=== PATIENT | female | born 1950 | race Caucasian/White ===

== ENCOUNTER 2019-02-27 13:28 | Inpatient (IN) | payer OTHER, MEDICAID ==
[~2019-02-27] VITALS: Ht 185.4 cm; Wt 126.6 kg
--- NOTE | 2019-02-27 13:28 | NUR ---
PATIENT BIB EMS TO BED 8.
--- NOTE | 2019-02-27 13:35 | NUR ---
DR. TATE AT BEDSIDE EVALUATING PATIENT.
[2019-02-27 13:36] VITALS: BP 177/86
--- NOTE | 2019-02-27 13:59 | NUR ---
LAB AT BEDSIDE
--- NOTE | 2019-02-27 14:06 | NUR ---
RAD AT BEDSIDE
--- NOTE | 2019-02-27 14:07 | NUR ---
PT BIBA FOR ALTERED MENTAL STATUS. PER [facility] PT BASELINE IS AAOX4. PT CURRENTLY AAOX0, GCS 9. LAST KNOWN NORMAL WAS LAST NIGHT. PT TRYING TO GET UP. PT UNABLE TO ANSWER QUESTIONS, MUMBLING, SPEACH INCOHERENT. PAIN AT 7/10 USING PAINAD SCALE. PT TACYCARDIC AT 102. SKIN IS INTACT. VSS. ER TO SEE PT. MEDHX:MANOHAR, CHRONIC PAIN
--- NOTE | 2019-02-27 14:12 | NUR ---
LOC ALTERED AND COMBATIVE SAMPLE WASHER UNABLE TO DRAW ABG ED MD AWARE
[2019-02-27 14:15] LABS: BASOPHILS % (AUTO) 0.3 % (0.0-2.0); EOSINOPHILS # (AUTO) 0.1 K/uL (0-0.4); HEMATOCRIT 37.6 % (36-48); HEMOGLOBIN 12.4 g/dL (12.0-16.0); LYMPHOCYTES # (AUTO) 1.1 K/uL (2.5-16.5); MEAN CORPUSCULAR HEMOGLOBIN 28 pg (27-31); MEAN CORPUSCULAR HGB CONC 33 g/dL (33-37); MEAN CORPUSCULAR VOLUME 85.5 fL (80-94); MONOCYTES # (AUTO) 0.8 K/uL (0.8-1.0); MONOCYTES % (AUTO) 11.3 % (1.7-9.3); NEUTROPHILS % (AUTO) 71.4 % (42.2-75.2); PLATELET COUNT (AUTO) 177 K/uL (140-450); RED CELL DISTRIBUTION WIDTH 13.6 % (11.6-13.7)
--- NOTE | 2019-02-27 14:15 | NUR ---
PER ED MD VENOUS DRAW OK IN LIEU OF ABG
--- NOTE | 2019-02-27 14:18 | NUR ---
VENOUS DRAW DONE BY PAGE
[2019-02-27 14:26] LABS: APPEARANCE,URINE CLEAR (CLEAR); BILIRUBIN,URINE NEGATIVE (NEGATIVE); BLOOD, URINE NEGATIVE (NEGATIVE); COLOR,URINE YELLOW (YELLOW); LEUKOCYTE ESTERASE ,URINE NEGATIVE (NEGATIVE); NITRITE, URINE NEGATIVE (NEGATIVE); UGLUCOSE NEGATIVE (NEGATIVE)
[2019-02-27 14:31] LABS: PROTHROMBIN TIME 9.9 secs (10.8-13.4)
[2019-02-27 14:32] LABS: ALBUMIN 3.1 g/dL (3.4-5.0); ANION GAP 13.9 (8-16); CARBON DIOXIDE 29.2 mmol/L (21-32); CREATININE 0.9 mg/dL (0.6-1.3); POTASSIUM 4.1 mmol/L (3.5-5.1); TOTAL BILIRUBIN 0.3 mg/dL (0.0-1.0)
[2019-02-27] MEDS ORDERED: metroNIDAZOLE 500 MG/NS PREMIX 100 ML IV ONE (14:40)
[2019-02-27] MEDS ORDERED: CEFEPIME 2,000 MG in DEXTROSE 5% 100 ML IV ONE (14:40)
[2019-02-27] MEDS ORDERED: VANCOMYCIN 1,000 MG in DEXTROSE 5% 250 ML IV ONE (14:40)
[2019-02-27] MEDS ORDERED: VANCOMYCIN 1,000 MG VIAL ONE (14:47)
[2019-02-27] MEDS ORDERED: PIPERACILLIN/TAZOBACTAM 3.375 GM VIAL IV ONE (14:47)
[2019-02-27] MEDS ORDERED: NACL 0.9% 1,000 ML IV ONE ×3 (15:00→16:20)
[2019-02-27] MEDS ORDERED: CEFEPIME 2,000 MG VIAL IV ONE (15:01)
--- NOTE | 2019-02-27 15:23 | NUR ---
PT WENT TO CT AT THIS TIME, PT IS NOT A CANDIDATE FOR CT WITH CONTRAST DUE TO SHELFISH ALLERGY, ER NOTIFIED.
--- NOTE | 2019-02-27 16:00 | NUR ---
CT DOWN, UNABLE TO OBTAIN CT AT THIS TIME, ER MADE AWARE
--- NOTE | 2019-02-27 16:29 | NUR ---
[facility] GAVE REPORT TO KIRBY ABEL ABOUT TRANSFER FOR CT. Addendum: 02/27/19 at 1634 by ROSEMARIE PAGE ORR STATED DR TRIPP IS UNWILLING TO ACCEPT PT UNLESS PT IS NO LONGER COMBATIVE AND ABLE TO PERFORM CT.
--- NOTE | 2019-02-27 16:55 | NUR ---
[facility]- ACLS AT BEDSIDE PATIENT TO TAKEN TO [facility] ER FOR CT SCAN.
--- NOTE | 2019-02-27 19:04 | NUR ---
PT RETURN TO BED 8 FROM [facility] TRANSPORT
--- NOTE | 2019-02-27 19:15 | NUR ---
REPORT RECV'D FROM JOSE DE JESUS ABEL
[2019-02-27] MEDS ORDERED: MORPHINE SULFATE 4 MG/ML SYR IVP ONE (19:45)
[2019-02-27] MEDS: NACL 0.9% 1,000 ML IV SCH (19:49)
[2019-02-27] MEDS ORDERED: DOCUSATE SODIUM 100 MG GELCAP PO PRN (19:50)
[2019-02-27] MEDS ORDERED: ONDANSETRON 4 MG/2 ML VIAL IM/IVP PRN (19:50)
[2019-02-27] MEDS ORDERED: FLUT1DSK2 IH (20:21)
[2019-02-27] MEDS ORDERED: GABA400C PO (20:21)
[2019-02-27] MEDS ORDERED: QUET100T PO (20:21)
[2019-02-27] MEDS ORDERED: METO25TA PO (20:21)
[2019-02-27] MEDS ORDERED: CARB1TAB35 PO (20:21)
[2019-02-27] MEDS ORDERED: TRAZ-343 PO (20:21)
[2019-02-27] MEDS ORDERED: LEVA0.6318 INH (20:21)
[2019-02-27] MEDS ORDERED: [UNRECOGNIZED DRUG - CODE] PO (20:21)
[2019-02-27] MEDS ORDERED: CLOP75TA55 PO (20:21)
[2019-02-27] MEDS ORDERED: CARBIDOPA (20:21)
[2019-02-27] MEDS ORDERED: HYDR-5043 PO (20:21)
[2019-02-27] MEDS ORDERED: PANT40EC PO (20:21)
[2019-02-27] MEDS ORDERED: TIOT18CA2 IH (20:21)
[2019-02-27] MEDS ORDERED: ATA25 PO (20:21)
[2019-02-27] MEDS ORDERED: DIVA500T1 PO (20:21)
[2019-02-27] MEDS ORDERED: FURO-572 PO (20:21)
[2019-02-27] MEDS ORDERED: NON-FORMULARY ITEM (Levalbuterol HCl* (Xopenex*) 0.63 MG) INH SCH (20:25)
[2019-02-27] MEDS ORDERED: HYDROCODONE PO SCH (20:25)
[2019-02-27] MEDS ORDERED: ACETAMINOPHEN PO SCH (20:25)
--- NOTE | 2019-02-27 20:31 | NUR ---
PT CLEANED, MADELYN CARE PROVIDED. NEW GOWN APPLIED. NEW DRY MALLY PADS. NEW SHEETS APPLIED TO BED. PT TOLERATED WELL. PT PLACED INTO POSITION OF COMFORT. WAITING FOR ADMISSION TO FLOOR.
--- NOTE | 2019-02-27 20:40 | NUR ---
Patient will be admitted to care of DR. SAMPSON. Admited to [facility]. Will go to room 111B. Belongings list completed. Report to STANLEY ABEL.
[2019-02-27 20:45] VITALS: BP 143/70
--- NOTE | 2019-02-27 20:45 | NUR ---
PT ARRIVED VIA GURNEY FROM ER, PT TRANSFERRED TO ROOM 111B. PT ESCORTED BY EMT AND ABBIE ABEL ER NURSE. REPORT GIVEN BY ABBIE ABEL ER NURSE, PT IN STABLE CONDITION. PT IS FROM [facility] WHERE SHE USES AN ELECTRIC W/C. PT IS AOX1, SHE HAS POOR HEARING AND VISION. PT SKIN INTACT, WITH IV SITE 20G ON RIGHT AC RUNNING FLAGYL ORDERED.V/S FOLLOWS T 97.4 P 84 R 18 B/P 143/70 02 95% ON ROOM AIR. PT PLACED ON FALLS PRECAUTIONS, SHE WAS ALSO TURNED, CHANGED AND REPOSITIONED FOR COMFORT. PT HOWEVER CAN TURN HERSELF.
[2019-02-27] MEDS: QUEtiapine FUMARATE 100 MG TAB PO SCH (21:00)
[2019-02-27] MEDS ORDERED: NON-FORMULARY ITEM (Fluticasone/Salmeterol* (Advair 250-50 Diskus*) 1 PUFF) IH SCH (21:00)
[2019-02-27 21:03] LABS: PHOSPHORUS 2.9 mg/dL (2.5-4.9); THYROID STIMULATING HORMONE 2.3 uIU/mL (0.34-3.74)
[2019-02-27 21:05] LABS: BARBITURATE, URINE NEG. ng/ml (NEG <=200); BENZODIAZEPINE, URINE NEG. ng/mL (NEG <=200); CANNABINOID, URINE NEG. ng/mL (NEG <=50); COCAINE, URINE NEG. ng/mL (NEG <=300); OPIATE, URINE NEG. ng/mL (NEG <=2000); PHENCYCLIDINE SCREEN,URINE NEG. ng/mL (NEG <=25)
--- NOTE | 2019-02-27 21:30 | NUR ---
PT GIVEN ROUTINE MEDS DEPAKOTE,SEROQUEL AND LOPRESSOR BY MOUTH. PT ABLE TO SWALLOW WHOLE PILLS AND DRINK THIN LIQUIDS WITH NO TROUBLE. N/S ORDER CHANGED TO RATE OF 60. IV SITE INTACT.LUNG SOUNDS CLEAR AND BOWEL SOUNDS HYPOACTIVE BUT PRESENT.
[2019-02-27] MEDS: ACETAMINOPHEN 325 MG TAB PO PRN (21:46)
[2019-02-27] MEDS: DIVALPROEX 500 MG TABER PO SCH (21:47)
[2019-02-27] MEDS: METOPROLOL 25 MG TAB PO SCH (21:59)
--- NOTE | 2019-02-27 22:00 | NUR ---
PT C/O OF MILD HEADACHE, PT GIVEN TYLENOL 650MG WILL MONITOR FOR PAIN RELIEF.
--- NOTE | 2019-02-27 23:30 | NUR ---
DR. JOHNSON ORDERED BUPAP, PT HAS HX OF SLEEP APNEA. RT AT BEDSIDE EVALUATING PT AND SETTING UP BIPAP MACHINE.
--- NOTE | 2019-02-28 00:30 | NUR ---
PT C/O OF BIPAP MACHINE KEEPS BEEPING, PT HAS NO S/S OF PAIN OR DISTRESS, RESPIRATORY CALLED TO EVALUATE MACHINE.
--- NOTE | 2019-02-28 01:00 | NUR ---
RT ATTEMPTED TO PLACE PATIENT ON BIPAP DURING THE NIGHTIME BUT PATIENT REFUSED TO WEAR IT. RT PLACED PATIENT BACK ON 3L NC. PATIENT STABLE AND NO RESP DISTRESS NOTICED AT THIS TIME.
--- NOTE | 2019-02-28 01:30 | NUR ---
RT EVALUATED MACHINE, PT REFUSES TO CONTINUE WITH BIPAP PT CONCERNED IT WILL KEEP BEEPING ON HER, PT REFUSES TO CONTINUE WITH BIPAP MACHINE. PT PLACE ON 3LITERS VIA N/C AND IS STATING AT 90%. DR. JOHNSON MADE AWARE.
[2019-02-28] MEDS ORDERED: TRAZ-343 PO (02:20)
[2019-02-28 04:00] VITALS: BP 124/48
--- NOTE | 2019-02-28 07:20 | NUR ---
CARE ENDORSED TO AYANA ABEL DAYSHIFT NURSE AT BEDSIDE FOR CONTINUITY OF CARE, PT IN STABLE CONDITION.
--- NOTE | 2019-02-28 07:25 | NUR ---
RECEIVED REPORT FROM MIXING PLACE SUPERVISOR NURSE. PT IN STABLE CONDITION. RESPIRATIONS EVEN AND UNLABORED. IV INTACT AND PATENT. O2 3L VIA NC PATENT AND INTACT. SAFETY MEASURES IN PLACE. BED IN LOW POSITION. BED ALARM ON. CALL LIGHT AT BEDSIDE. WILL CONTINUE TO MONITOR.
[2019-02-28 07:44] LABS: MAGNESIUM 1.9 mg/dL (1.8-2.4); PHOSPHORUS 3.4 mg/dL (2.5-4.9)
[2019-02-28 07:48] LABS: ANION GAP 10.4 (8-16); CARBON DIOXIDE 31.4 mmol/L (21-32); CREATININE 0.7 mg/dL (0.6-1.3); POTASSIUM 3.8 mmol/L (3.5-5.1)
[2019-02-28 08:00] VITALS: BP 171/94
[2019-02-28 08:07] LABS: BASOPHILS % (AUTO) 0.4 % (0.0-2.0); EOSINOPHILS # (AUTO) 0.1 K/uL (0-0.4); EOSINOPHILS % (AUTO) 1.7 % (0.0-4.0); HEMATOCRIT 33.7 % (36-48); HEMOGLOBIN 10.9 g/dL (12.0-16.0); LYMPHOCYTES # (AUTO) 1.6 K/uL (2.5-16.5); LYMPHOCYTES % (AUTO) 24.8 % (20.5-51.1); MEAN CORPUSCULAR HEMOGLOBIN 28 pg (27-31); MEAN CORPUSCULAR HGB CONC 32 g/dL (33-37); MONOCYTES # (AUTO) 0.9 K/uL (0.8-1.0); MONOCYTES % (AUTO) 13.3 % (1.7-9.3); NEUTROPHILS % (AUTO) 59.8 % (42.2-75.2); PLATELET COUNT (AUTO) 169 K/uL (140-450); RED BLOOD CELL COUNT(AUTO) 3.93 MIL/uL (4.20-5.40); RED CELL DISTRIBUTION WIDTH 13.7 % (11.6-13.7); WHITE BLOOD COUNT (AUTO) 6.6 K/uL (4.8-10.8)
[2019-02-28 08:23] LABS: CHOL/HDL RATIO 4.2 (1-4.5)
--- NOTE | 2019-02-28 08:38 | NUR ---
GAVE PT TWO WASH CLOTH TO PLACE ON EYES AND NECK. PT C/O MIGRAINE. BED IN LOW POSITION. BED ALARM ON. CALL LIGHT AT BEDSIDE. WILL CONTINUE TO MONITOR.
[2019-02-28] MEDS ORDERED: TIOTROPIUM BROMIDE 18 MCG IH SCH (09:00)
[2019-02-28] MEDS ORDERED: NON-FORMULARY ITEM (Clopidogrel Bisulfate (Clopidogrel) 75 MG) PO SCH (09:00)
[2019-02-28] MEDS ORDERED: SUMAtriptan 25 MG TAB PO SCH (09:45)
[2019-02-28] MEDS: GABAPENTIN 100 MG CAP PO SCH ×3 (09:58→17:17)
[2019-02-28] MEDS: LACTOBACILLUS RHAMNOSUS GG 1 EACH CAP PO SCH (09:59)
[2019-02-28] MEDS: QUEtiapine FUMARATE 100 MG TAB PO SCH ×2 (09:59→20:54)
[2019-02-28] MEDS: METOPROLOL 25 MG TAB PO SCH ×2 (09:59→20:54)
[2019-02-28] MEDS: LEVOTHYROXINE 0.05 MG TAB PO SCH (10:00)
[2019-02-28] MEDS: CARBIDOPA/LEVODOPA 10/100 MG 1 TAB PO SCH ×3 (10:01→17:17)
[2019-02-28] MEDS: DIVALPROEX 500 MG TABER PO SCH ×2 (10:01→20:54)
[2019-02-28] MEDS: FAMOTIDINE 20 MG TAB PO SCH (10:01)
[2019-02-28] MEDS: CLOPIDOGREL 75 MG TAB PO SCH (10:01)
--- NOTE | 2019-02-28 11:56 | NUR ---
ASSISTED WITH CLEANING AND CHANGING LINEN. PT TOLERATED WELL. BED IN LOW POSITION. BED ALARM ON. CALL LIGHT AT BEDSIDE. WILL CONTINUE TO MONITOR.
[2019-02-28 12:00] VITALS: BP 146/72
[2019-02-28] MEDS ORDERED: SUMAtriptan 50 MG TAB PO SCH (13:00)
[2019-02-28] MEDS: NACL 0.9% 1,000 ML IV SCH (13:30)
--- NOTE | 2019-02-28 13:38 | NUR ---
GAVE ORDERED MEDICATIONS AT THIS TIME. PT TOLERATED WELL. BED IN LOW POSITION. BED ALARM ON. CALL LIGHT AT BEDSIDE. WILL CONTINUE TO MONITOR.
[2019-02-28 16:00] VITALS: BP 149/84
[2019-02-28] MEDS: HYDROcodone/APAP 10/325 MG 1 TAB TAB PO PRN (18:03)
--- NOTE | 2019-02-28 19:32 | NUR ---
REPORT GIVEN TO CHARGING OPERATOR DENIS RN FOR CONTINUITY OF CARE. PT IS STABLE AT THIS TIME.
--- NOTE | 2019-02-28 19:35 | NUR ---
RECEIVED FROM AM RN IN BED SITTING UP. TALKING TO SOMEONE ON THE PHONE. ABLE TO VERBALIZE NEEDS WELL. NO SOB. TELEMETRY MONITORING. ENCOURAGED TO CALL FOR ANY HELP SHE MAY NEED. CARE PLANS FOR THE NIGHT DISCUSSED WITH HER.
[2019-02-28 20:43] VITALS: BP 160/81
[2019-02-28] MEDS: traZODone 50 MG TAB PO SCH (20:54)
--- NOTE | 2019-02-28 22:30 | NUR ---
PT. STILL AWAKE AND WATCHING TV. REQUESTED TO HAVE BIPAP ON. CALLED RESPIRATORY THERAPIST AND MADE THEM AWARE OF PT. REQUEST.
--- NOTE | 2019-02-28 23:23 | NUR ---
Patient placed on CPAP [phone] and is stable and alert. No resp distress is noticed and patient is alert and oriented. Leidy Vasquez notified of the switch from BIPAP to CPAP and approved. RN notified and patient seems to tolerate the CPAP better and is more comfortable. RT will continue to monitor closely during the night.
[2019-03-01 01:17] VITALS: BP 113/63
--- NOTE | 2019-03-01 02:10 | NUR ---
PT. SLEEPING WELL WITH BIPAP ON. NO RESTLESSNESS NOTED.
--- NOTE | 2019-03-01 03:00 | NUR ---
Patient took CPAP off and did not want to wear it any longer. Patient stable and asleep. Spo2 96 heart rate 88. Rt put patient back on nasal canula 3L.
[2019-03-01 04:02] VITALS: BP 114/62
--- NOTE | 2019-03-01 04:42 | NUR ---
SLEEPING . NO COMPLAINTS DONE.
[2019-03-01] MEDS: NACL 0.9% 1,000 ML IV SCH ×2 (05:09→22:41)
--- NOTE | 2019-03-01 06:23 | NUR ---
PT. AWAKE AT THIS TIME. BLOOD SPECIMEN TAKEN BY MACHINE OPERATOR FARMWORKER. NO COMPLAINTS DONE. A/O X 4. WILL ENDORSE TO THE NEXT RN FOR CONTINUITY OF CARE. SLEPT WELL.
[2019-03-01 06:47] LABS: BASOPHILS % (AUTO) 0.5 % (0.0-2.0); EOSINOPHILS # (AUTO) 0.1 K/uL (0-0.4); EOSINOPHILS % (AUTO) 1.8 % (0.0-4.0); HEMATOCRIT 32.1 % (36-48); HEMOGLOBIN 10.5 g/dL (12.0-16.0); LYMPHOCYTES # (AUTO) 1.7 K/uL (2.5-16.5); LYMPHOCYTES % (AUTO) 26.7 % (20.5-51.1); MEAN CORPUSCULAR HEMOGLOBIN 28 pg (27-31); MEAN CORPUSCULAR HGB CONC 33 g/dL (33-37); MEAN CORPUSCULAR VOLUME 85.7 fL (80-94); MONOCYTES # (AUTO) 0.9 K/uL (0.8-1.0); MONOCYTES % (AUTO) 14.3 % (1.7-9.3); NEUTROPHILS # (AUTO) 3.6 K/uL (1.8-7.7); NEUTROPHILS % (AUTO) 56.7 % (42.2-75.2); PLATELET COUNT (AUTO) 169 K/uL (140-450); RED BLOOD CELL COUNT(AUTO) 3.75 MIL/uL (4.20-5.40); RED CELL DISTRIBUTION WIDTH 13.7 % (11.6-13.7); WHITE BLOOD COUNT (AUTO) 6.4 K/uL (4.8-10.8)
--- NOTE | 2019-03-01 07:40 | NUR ---
RECEIVED REPORT FROM NIGHT NURSE DENIS PT ASLEEP EASILY AROUCABLE TO A/OX 4, ABLE TO COMMUNICATE NEEDS. PT DENIES PAIN DISCOMFORT, NO S/S OF ACUTE DISTRESS NOTED. CALL LIGHT AND PERSONAL ITEMS WITHIN REACH, SAFETY PRECAUTIONS IN PLACE, WILL CONTINUE TO MONITOR.
[2019-03-01 07:43] LABS: ANION GAP 12.2 (8-16); CARBON DIOXIDE 29.4 mmol/L (21-32); CREATININE 0.8 mg/dL (0.6-1.3); POTASSIUM 3.6 mmol/L (3.5-5.1)
[2019-03-01 07:51] LABS: MAGNESIUM 2.1 mg/dL (1.8-2.4)
[2019-03-01 08:00] VITALS: BP 141/83
[2019-03-01] MEDS ORDERED: DOCUSATE SODIUM 100 MG GELCAP PO PRN (08:04)
--- NOTE | 2019-03-01 08:23 | NUR ---
PATIENT HAS BEEN SCREENED AND CATEGORIZED MODERATE NUTRITION RISK. PATIENT WILL BE SEEN WITHIN 3-5 DAYS OF ADMISSION. 03/02/[address]
[2019-03-01] MEDS ORDERED: LIDOCAINE OINTMENT 5% 35 GM TUBE TP SCH (09:00)
[2019-03-01] MEDS: LACTOBACILLUS RHAMNOSUS GG 1 EACH CAP PO SCH (09:02)
[2019-03-01] MEDS: DIVALPROEX 500 MG TABEC PO SCH ×2 (09:03→22:40)
[2019-03-01] MEDS: METOPROLOL 25 MG TAB PO SCH ×2 (09:05→22:41)
[2019-03-01] MEDS: CLOPIDOGREL 75 MG TAB PO SCH (09:06)
[2019-03-01] MEDS: GABAPENTIN 100 MG CAP PO SCH ×3 (09:06→17:52)
[2019-03-01] MEDS: FAMOTIDINE 20 MG TAB PO SCH (09:06)
[2019-03-01] MEDS: QUEtiapine FUMARATE 100 MG TAB PO SCH (09:07)
[2019-03-01] MEDS: CARBIDOPA/LEVODOPA 10/100 MG 1 TAB PO SCH ×3 (09:07→17:52)
[2019-03-01] MEDS: LEVOTHYROXINE 0.05 MG TAB PO SCH (09:08)
[2019-03-01] MEDS ORDERED: MENTHOL/METHYL 10%-15% 114 GM TUBE TP PRN (09:25)
--- NOTE | 2019-03-01 09:30 | NUR ---
PT A/O ABLE TO COMMUNICATE NEEDS. NO S/S OF ACUTE DISTRESS NOTED. CALL LIGHT AND PERSONAL ITEMS WITHIN REACH, SAFETY PRECAUTIONS IN PLACE, WILL CONTINUE TO MONITOR.
--- NOTE | 2019-03-01 10:50 | NUR ---
PT SECOND MUSHY STOOL ON SHIFT, CHARGE AND PHYSICIAN NOTIFIED, SAMPLE COLLECTED AND DELIVERED TO LAB FOR CDIFF TESTING.
--- NOTE | 2019-03-01 11:15 | NUR ---
NOTIFIED PT PER PHARMACY SPIRIVA AND ADVAIR NOT AVAILABLE, REQUESTED FAMILY OF FRIEND BRING MED FROM HOME.
--- NOTE | 2019-03-01 11:45 | NUR ---
PT TO A/OX 4, ABLE TO COMMUNICATE NEEDS. ASSISTED PT OOB TO CHAIR, NO S/S OF ACUTE DISTRESS NOTED. CALL LIGHT AND PERSONAL ITEMS WITHIN REACH, SAFETY PRECAUTIONS IN PLACE, WILL CONTINUE TO MONITOR.
[2019-03-01] MEDS: CHLORHEXADINE GLUC 2% CLOTH TP SCH (12:20)
[2019-03-01 12:30] VITALS: BP 120/50
[2019-03-01] MEDS: HYDROcodone/APAP 10/325 MG 1 TAB TAB PO PRN (12:30)
--- NOTE | 2019-03-01 12:30 | NUR ---
PER ORDER CONTACT PRECAUTIONS PLACED, PT PROVIDED EDUCATION, VERBALIZES UNDERSTANDING. NO S/S OF ACUTE DISTRESS NOTED. CALL LIGHT AND PERSONAL ITEMS WITHIN REACH, SAFETY PRECAUTIONS IN PLACE, WILL CONTINUE TO MONITOR.
[2019-03-01] MEDS: MUPIROCIN CA NASAL 2% 1GM TUBE NS SCH (13:22)
[2019-03-01] MEDS: ALBUTEROL SULFATE/IPRATROPIU 3 ML SOL IH PRN ×2 (13:56→21:14)
--- NOTE | 2019-03-01 14:00 | NUR ---
PT REMAIN OOB TO CHAIR, COMFORTABLE PLAYING GAMES ON CELL PHONE. NO S/S OF ACUTE DISTRESS NOTED. CALL LIGHT AND PERSONAL ITEMS WITHIN REACH, SAFETY PRECAUTIONS IN PLACE, WILL CONTINUE TO MONITOR.
[2019-03-01] MEDS ORDERED: hydrOXYzine HCL 25 MG TAB PO PRN (15:25)
[2019-03-01 16:00] VITALS: BP_SYST 107; BP_SYST 122; BP_SYST 132; BP_DIAS 51; BP_DIAS 63; BP_DIAS 68
--- NOTE | 2019-03-01 16:30 | NUR ---
PT AWAKE A/O ABLE TO COMMUNICATE NEEDS, ORTHOSTATIC VS COMPELTED, TOLERATED WELL, NO S/S OF ACUTE DISTRESS NOTED AT THIS TIME, CALL LIGHT AND PERSONAL ITEMS WITHIN REACH, WILL CONTINUE TO MONITOR.
--- NOTE | 2019-03-01 18:00 | NUR ---
PT AWAKE A/O ABLE TO COMMUNICATE NEEDS, DR SANTA NOTIFIED PT WITHOUT DVT PROPHYLAXIS, PER MD HE WILL WRITE AN ORDER FOR DVT PROPHYLAXIS. PT RESTING COMFORTABLY IN BED, NO S/S OF ACUTE DISTRESS NOTED AT THIS TIME, CALL LIGHT AND PERSONAL ITEMS WITHIN REACH, WILL CONTINUE TO MONITOR.
--- NOTE | 2019-03-01 19:08 | NUR ---
PT AWAKE A/O ABLE TO COMMUNICATE NEEDS, NO S/S OF ACUTE DISTRESS NOTED AT THIS TIME, CALL LIGHT AND PERSONAL ITEMS WITHIN REACH, REPORT ENDORSED TO ONCOMING NURSE.
--- NOTE | 2019-03-01 19:10 | NUR ---
RECEIVED REPORT FROM [facility] DAYSHIFT NURSE AT BEDSIDE FOR CONTINUITY OF CARE, PT IN STABLE CONDITION.
[2019-03-01 20:00] VITALS: BP 142/69
--- NOTE | 2019-03-01 20:00 | NUR ---
PT IN BED HOB UP 45%. V/S FOLLOWS T 97.3 P 110 R 20 B/P 147/69 02 97% WITH 2LITERS VIA N/C. ALL FALLS AND CONTACT PRECAUTIONS IN PLACE. PT HAS NO C/O VOICED AT THIS TIME.
--- NOTE | 2019-03-01 21:14 | NUR ---
AWAKE AND ALERT VERBALLY RESPONSIVE PATIENT C/O SOB PRN HHN THERAPY AND RES[IRATORY DRUG GIVEN AT THIS TIME BIPAP VISION (#[id number]) AT BEDSIDE
--- NOTE | 2019-03-01 21:40 | NUR ---
DR. ARAYA AT BEDSIDE FOR PSYCH CONSULT.
--- NOTE | 2019-03-01 22:00 | NUR ---
PT RECEIVED ALL DUE MEDS AT THIS TIME. NO PRN GIVEN AT THIS TIME. PT HAS NO C/O OF PAIN AT THIS TIME. ALL FALLS AND CONTACT PRECAUTIONS IN PLACE. PT ABLE TO REPOSITION SELF IN BED. CALL BONILLA IN REACH.
[2019-03-01] MEDS: traZODone 50 MG TAB PO SCH (22:40)
[2019-03-02] VITALS: BP 98/66
--- NOTE | 2019-03-02 00:30 | NUR ---
PT IN BED WITH BIBPAP ON NO S/S OF PAIN OR DISTRESS NOTED, ALL FALLS AND CONTACT PRECAUTIONS IN PLACE IV FLUIDS N/S RUNNING ORDERED. FLUIDS REPLACED V/S FOLLOWS T 97.6 P 86 R 18 B/P 98/66 02 96% WITH BIPAP ON . PT HAS NO C/O VOICED AT THIS TIME.
--- NOTE | 2019-03-02 05:37 | NUR ---
PATIENT OFF CPAP AT THIS TIME BY Jodi GONG RCP PLACED ON SUPPLEMENTAL OXYGEN VIA NC
--- NOTE | 2019-03-02 06:15 | NUR ---
SYNTHROID GIVEN ORDERED.
[2019-03-02] MEDS: LEVOTHYROXINE 0.025 MG TAB PO SCH (06:48)
--- NOTE | 2019-03-02 07:25 | NUR ---
REPORT GIVEN TO LASHA RN AT BEDSIDE FOR CONTINUITY OF CARE,PT IN STABLE CONDITION.
--- NOTE | 2019-03-02 07:26 | NUR ---
HAND OFF REPORT RECEIVED AT PT BEDSIDE FROM SEMICONDUCTOR WAFERS TESTER NURSE. PT IN BED ASLEEP. BED LOCK AND IN LOWEST POSITION. 2L NASAL CANULA IN PLACE. PT APPEARS IN NO APPARENT DISTRESS. WILL CONTINUE TO MONITOR.
--- NOTE | 2019-03-02 08:00 | NUR ---
LAB INFORMED ME THAT THEY WENT TO TAKE HER BLOOD AND THE PATIENT REFUSED. NO BLOOD DRAW WAS RECEIVED THIS MORNING DUE TO PT REFUSAL.
[2019-03-02] MEDS ORDERED: ATA25 PO (08:58)
[2019-03-02] MEDS ORDERED: FAMO20TA13 PO (08:59)
[2019-03-02] MEDS ORDERED: QUET100T44 PO (08:59)
[2019-03-02] MEDS ORDERED: DOCU-299 PO (08:59)
[2019-03-02] MEDS ORDERED: CHLO118S2 TP (08:59)
[2019-03-02] MEDS ORDERED: BACTNA NS (08:59)
[2019-03-02] MEDS ORDERED: [UNRECOGNIZED DRUG - CODE] IH (09:20)
[2019-03-02] MEDS ORDERED: PUL.5N NEB (09:20)
[2019-03-02] MEDS: LACTOBACILLUS RHAMNOSUS GG 1 EACH CAP PO SCH (09:58)
[2019-03-02] MEDS: GABAPENTIN 100 MG CAP PO SCH ×3 (09:59→17:31)
[2019-03-02] MEDS: FAMOTIDINE 20 MG TAB PO SCH (09:59)
[2019-03-02] MEDS: QUEtiapine FUMARATE 100 MG TAB PO SCH ×2 (09:59→20:58)
[2019-03-02] MEDS: CARBIDOPA/LEVODOPA 10/100 MG 1 TAB PO SCH ×3 (10:00→17:31)
[2019-03-02] MEDS: METOPROLOL 25 MG TAB PO SCH ×2 (10:00→20:58)
[2019-03-02] MEDS: CLOPIDOGREL 75 MG TAB PO SCH (10:00)
[2019-03-02] MEDS: DIVALPROEX 500 MG TABEC PO SCH ×2 (10:01→20:59)
[2019-03-02] MEDS: HYDROcodone/APAP 10/325 MG 1 TAB TAB PO PRN ×2 (10:29→21:09)
--- NOTE | 2019-03-02 10:44 | NUR ---
CALLED [facility] ABOUT THE NEBULIZER. SPOKE WITH WALDEMAR, . SHE SAID TO FAX THE ORDER TO THEM AT [phone], WHICH I DID.
--- NOTE | 2019-03-02 10:54 | NUR ---
PT COMPLAINED OF PAIN AND ASKED FOR PAIN MEDICATION. PT ALSO HAD A BOWEL MOVEMENT AND REQUESTED TO BE CLEANED. CLEANED PT AND PROVIDED WITH NEW CHUCKS AND LINENS, AND REPOSITIONED PT. NOTED SOME REDDNESS ON THE SACRAL AREA WILL CONTINUE TO MONITOR. BED IN LOWEST AND LOCKED POSITION. CALL LIGHT WITHIN REACH.
--- NOTE | 2019-03-02 11:55 | NUR ---
SPOKE WITH WALDEMAR FROM [employer], [phone] ASKING ABOUT THE NEBULIZER. SHE SAID TO REFAX TO HER AT [phone], WHICH I DID. I CALLED KATHRYN MARTIN AND WAS TOLD THAT [employer] ARRANGES TRANSPORT, SINCE THIS PATIENT DOES NOT FIT IN THEIR VAN. WILL CALL [employer].
--- NOTE | 2019-03-02 12:05 | NUR ---
FREQUENT ROUNDING ON PATIENT. PT IN BED RESTING QUIETLY PLAYING GAMES ON HER PHONE. PT IS STABLE AND APPEARS IN NO APPARENT DISTRESS. WILL CONTINUE TO MONITOR.
[2019-03-02] MEDS: CHLORHEXADINE GLUC 2% CLOTH TP SCH (13:06)
[2019-03-02] MEDS: MUPIROCIN CA NASAL 2% 1GM TUBE NS SCH (13:06)
--- NOTE | 2019-03-02 13:52 | NUR ---
I SPOKE WITH WALDEMAR FROM [employer] [phone]. SHE SAID SHE RECEIVED THE ORDER FOR NEBULIZER AND MEDICATION FOR NEBULIZER WHICH SHE GAVE TO THEIR PHYSICIAN. SHE SAID THEY WILL ARRANGE DELIVERY OF NEBULIZER AND MEDICATION TO [facility]. SHE SAID FOR TRANSPORT, USE [employer]. AUTH IS [id number].
--- NOTE | 2019-03-02 14:27 | NUR ---
FREQUENT ROUNDING ON PT. PT IN BED PLAYING GAMES ON HER PHONE. PT TURNED AND REPOSITIONED. PT IS STABLE AND APPEARS IN NO APPARENT DISTRESS. WILL CONTINUE TO MONITOR.
[2019-03-02] MEDS: NACL 0.9% 1,000 ML IV SCH (14:29)
--- NOTE | 2019-03-02 15:30 | NUR ---
PT REQUESTED LINEN CHANGE DUE TO URINATION. CLEANED AND CHANGED PT LINENS AND CHUCKS. ORDERED TO TITRATE DOWN THE NASAL CANULA. PT IS STABLE WITH NO NASAL CANULA ON AT THE MOMENT. PT IS REPOSITIONED AND RESTING COMFORTABLY. PT REQUESTED FOR SOME CHOCOLATE PUDDING AND DIET COKE. GAVE IT TO PT. ALL SAFETY MEASURES ARE IN PLACE AND WILL CONTINUE TO MONITOR.
--- NOTE | 2019-03-02 15:40 | NUR ---
0897 PER CHARGE NURSE ZANDRA ANTONY SAID THEY ARE NOT CONTRACTED WITH [employer] FOR BARIATRIC GURNEY WHICH PATIENT NEEDS. TRIED CALLING [facility] VIEIRA NUMEROUS TIMES AND VM IS FULL. CALLED [facility] AT [phone] AND SPOKE WITH BANG AND INFORMED HER THAT A TRANSPORT COMPANY WHO IS CONTRACTED AND CAN PROVIDE BARIATRIC GURNEY IS REQUIRED AND INFORMED HER THAT WILL NOT TRANSPORT THE PATIENT WHO IS TO BE DISCHARGED TODAY. BANG STATED WILL CHECK WITH WALDE[facility] AND I INFORMED HER I HAD ATTEMPTED TO CALL HER BUT THE VM BOX IS FULL. [phone] CALLED [facility] [employer] HAD NOT HEARD ABOUT THE TRANSPORT. SHE STATED THAT SHE HAD NOT BEEN ABLE TO FOLLOW UP AND I PROVIDED HER WITH THE DIRECT LINE TO THE MST UNIT AND REQUESTED THAT SHE CALL WITH [facility].
--- NOTE | 2019-03-02 18:00 | NUR ---
IV SITE WAS BLOODY, WITH BLOOD IN THE LINE AND THE IV CATH TIP WAS FALLING OUT. PT COMPLAINED OF PAIN. I REMOVED THE IV. IV CATH TIP WAS IN PLACE. CLEANSED THE DRIED BLOOD AROUND THE SITE.
[2019-03-02 18:24] VITALS: BP 146/87
--- NOTE | 2019-03-02 18:44 | NUR ---
FREQUENT ROUNDING PT IS RESTING QUIETLY IN BED. PT IS TOLERATING NO NASAL CANULA. REPOSITIONED PT. PT IS STABLE AND APPEARS IN NO APPARENT DISTRESS. ALL SAFETY MEASURES ARE IN PLACE.
--- NOTE | 2019-03-02 19:15 | NUR ---
ENDORSED BURIAL VAULT MAKER NURSE AT PT BEDSIDE. PT IS AWAKE AND SITTING UP IN BED. PT IS STABLE AND APPEARS IN NO APPARENT DISTRESS, ALL SAFETY MEASURES ARE IN PLACE.
--- NOTE | 2019-03-02 19:16 | NUR ---
RECEIVED BEDSIDE REPORT FROM LASHA. PT IS ON NC 2L. RESPIRATIONS ARE EQUAL AND UNLABORED. PT AAO X2-3. PT HAS NO IV ACCESS NURSE D/C IV. WILL ATTEMPT TO START NEW ONE PT ON IVF NO IV ANTIBIOTIC. PLAN OF PT TO D/C TOMORROW. SKIN INTACT HAS REDNESS ON SACRAL AREA. PT ABLE TO TURN IN BED BUT IS INCONTINENT TO URINE AND BM. PT ON CONTACT ISOLATION FOR MRSA OF NARES. SAFETY MEASURES ARE IN PLACE. BED ALARM ON AND LOWEST POSITION PLAN OF CARE DISCUSSED WITH PT. CALL LIGHT WITHIN REACH.
--- NOTE | 2019-03-02 20:59 | NUR ---
DUE MEDICATION GIVEN PT TOLERATED WELL. PT SITTING UP EATING A SANDWICH. ALL NEEDS MET AT THIS TIME. CALL LIGHT WITHIN REACH.
[2019-03-02] MEDS: traZODone 50 MG TAB PO SCH (21:00)
--- NOTE | 2019-03-02 21:50 | NUR ---
PT GOT OUT OF BED WITHOUT CALLING TO USE THE RESTROOM. BED ALARM WAS ON BUT DIFFICULT TO HEAR D/T CONSTRUCTION ON THE ROOM NEXT DOOR. ASSISTED PT TO RESTROOM. RE EDUCATED PT TO CALL FOR ASSISTANCE SHE NEEDS TO USE BEDPAN AND CANNOT GET OUT OF BED WITHOUT ASSISTANCE D/T GEN WEAKNESS. PT VERBALIZED UNDERSTANDING. ASSISTED PT TO BED. CALL LIGHT WITHIN REACH. BED ON LOWEST POSITION AND BED ALARM ON.
--- NOTE | 2019-03-02 23:00 | NUR ---
PT REFUSED NEW IV ACCESS. STATES SHE IS GOING HOME AND DOES NOT WANT TO BE POKED. EXPLAINED HOSPITAL PROTOCOL PT VERBALIZED UNDERSTANDING. BUT STILL REFUSED IV. WILL CONTINUE TO MONITOR.
[2019-03-02 23:58] VITALS: BP 144/75
--- NOTE | 2019-03-03 | NUR ---
VITAL SIGNS ARE STABLE. ALL NEEDS MET AT THIS TIME. CALL LIGHT WITHIN REACH. WILL CONTINUE TO MONITOR.
[2019-03-03] MEDS: ACETAMINOPHEN 325 MG TAB PO PRN (01:20)
--- NOTE | 2019-03-03 02:00 | NUR ---
PT IS SLEEPING COMFORTABLY IN BED. RESPIRATIONS ARE EQUAL AND UNLABORED. CALL LIGHT IS WITHIN REACH. SAFETY MEASURES ARE IN PLACE.
[2019-03-03] MEDS: NACL 0.9% 1,000 ML IV SCH (02:13)
[2019-03-03] MEDS: LEVOTHYROXINE 0.025 MG TAB PO SCH (06:35)
--- NOTE | 2019-03-03 07:55 | NUR ---
GAVE BEDSIDE REPORT TO DAY SHIFT RN. PT ENDORSED IN STABLE CONDITION.
[2019-03-03 08:00] VITALS: BP 159/78
--- NOTE | 2019-03-03 08:00 | NUR ---
RECEIVED BEDSIDE REPORT FROM DEPARTMENT DIRECTOR RN FOR CONTINUITY OF CARE. PT IN STABLE CONDITION. NO C/O PAIN AND DISCOMFORT. NO S/S DISTRESS. RESPIRATIONS EVEN AND UNLABORED ON RA. SKIN INTACT- WITH SACRAL REDNESS. ON BEDREST. NO IV ACCESS- PT HAS REFUSED AND IS AWARE. ALL SAFETY PRECAUTIONS IN PLACE, WILL CONTINUE TO MONITOR.
[2019-03-03] MEDS: QUEtiapine FUMARATE 100 MG TAB PO SCH (08:49)
[2019-03-03] MEDS: CARBIDOPA/LEVODOPA 10/100 MG 1 TAB PO SCH (08:49)
[2019-03-03] MEDS: DIVALPROEX 500 MG TABEC PO SCH (08:49)
[2019-03-03] MEDS: LACTOBACILLUS RHAMNOSUS GG 1 EACH CAP PO SCH (08:49)
[2019-03-03] MEDS: GABAPENTIN 100 MG CAP PO SCH (08:49)
[2019-03-03] MEDS: METOPROLOL 25 MG TAB PO SCH (08:50)
[2019-03-03] MEDS: FAMOTIDINE 20 MG TAB PO SCH (08:51)
[2019-03-03] MEDS: CLOPIDOGREL 75 MG TAB PO SCH (08:52)
[2019-03-03] MEDS: HYDROcodone/APAP 10/325 MG 1 TAB TAB PO PRN (08:52)
--- NOTE | 2019-03-03 09:04 | NUR ---
[facility] AUTH# [id number]. Pt will be picked up at 1030 from room 111 B and transported to [address] [place] [address]. Phone numbre . Informed Latonya ZAMBRANO for the cherry picker operator time and pt will be assisted from bed to wheelchair.
--- NOTE | 2019-03-03 09:13 | NUR ---
Informed [facility] pt will be picked up by at 1030 and transported to them. Pt will be going to room 202.
[2019-03-03] MEDS ORDERED: CHLO118S2 TP (10:33)
[2019-03-03] MEDS ORDERED: BACTNA NS (10:33)
--- NOTE | 2019-03-03 10:55 | NUR ---
DISCHARGE PAPERWORK, INCLUDING INSTRUCTIONS TO F/U WITH PCP, GIVEN TO PATIENT. NEW PRESCRIPTION/MEDICATION TEACHING AND MEDICATION RECONCILIATION TEACHING GIVEN TO PATIENT. ID BANDS REMOVED. ALL PERSONAL BELONGINGS ARE WITH PATIENT. FLU VACCINE AND PNEUMOVAX UP TO DATE. PATIENT DISCHARGED VIA WHEELCHAIR W/ TRANSPORTERS IN STABLE CONDITION- TO GO BACK TO [facility].
== END 2019-03-03 10:55 | disposition home or self-care (01) | DRG 189 ==
LOC: MED 13:28 → MTU 19:49
PROVIDERS: ADMIT General Practice; ATTEND General Practice
PROC: 5A09357 Assistance with Respiratory Ventilation, Less than 24 Consecutive Hours, Continuous Positive Airway Pressure (ICD-10-PCS; principal; 2019-02-28)
DX: J96.21 Acute and chronic respiratory failure with hypoxia (principal); G93.41 Metabolic encephalopathy; R65.11 Systemic inflammatory response syndrome (SIRS) of non-infectious origin with acute organ dysfunction; E44.0 Moderate protein-calorie malnutrition; E66.2 Morbid (severe) obesity with alveolar hypoventilation; F25.9 Schizoaffective disorder, unspecified; J44.9 Chronic obstructive pulmonary disease, unspecified; K21.9 Gastro-esophageal reflux disease without esophagitis; G47.00 Insomnia, unspecified; M17.0 Bilateral primary osteoarthritis of knee; E03.9 Hypothyroidism, unspecified; R39.81 Functional urinary incontinence; D64.9 Anemia, unspecified; G62.9 Polyneuropathy, unspecified; G20 Parkinson's disease; E78.5 Hyperlipidemia, unspecified; G89.29 Other chronic pain; Z68.36 Body mass index [BMI] 36.0-36.9, adult; Z88.2 Allergy status to sulfonamides; Z88.8 Allergy status to other drugs, medicaments and biological substances; Z88.0 Allergy status to penicillin; Z91.013 Allergy to seafood; Z79.899 Other long term (current) drug therapy; Z22.322 Carrier or suspected carrier of Methicillin resistant Staphylococcus aureus
CPT/HCPCS: 36415; 36600; 71045; 80048; 80053; 80305; 81003; 82140; 82150; 82550; 82553; 82803; 83036; 83605; 83690; 83735; 83874; 83880; 84100; 84443; 84484; 85025; 85610; 85730; 87040; 87070; 87081; 87086; 94640; 94660; 96365; 97530; 99291; C1758; J0692; J1644; J2270; J2543; J3370; J3490; J7030; J7620; Q0092

== ENCOUNTER 2019-03-09 14:10 | Inpatient (IN) | payer OTHER, MEDICAID ==
[~2019-03-09] VITALS: Ht 167.6 cm; Wt 81.6 kg
[2019-03-09 14:10] VITALS: BP 152/129
[~2019-03-09 14:10] MED LIST: ATA25 PO; BACTNA NS; CARB1TAB35 PO; CHLO118S2 TP; CLOP75TA55 PO; DIVA500T1 PO; DOCU-299 PO; FAMO20TA13 PO; FURO-572 PO; GABA400C PO; LEVA0.6318 INH; METO25TA PO; PUL.5N NEB; QUET100T44 PO; TIOT18CA2 IH; TRAZ-343 PO; [UNRECOGNIZED DRUG - CODE] IH; [UNRECOGNIZED DRUG - CODE] PO
--- NOTE | 2019-03-09 14:10 | NUR ---
PATIENT BIBA TO BED 4.
--- NOTE | 2019-03-09 14:13 | NUR ---
DR. CLAYTON AT BEDSIDE EVALUATING PATIENT.
--- NOTE | 2019-03-09 14:24 | NUR ---
PT PLACED ON 5150 HOLD BY KATHRYN SCRUGGS
--- NOTE | 2019-03-09 14:30 | NUR ---
68 Y FEMALE BIBA FOR SUICIDAL ATTEMPT FROM [facility]. PER EMS, STAFF FOUND PATIENT IN THE BATHROOM WITH BELONGINGS BAG WRAPPED OVER HER HEAD. GCS 14 (E4 V4 M6), PT WITH INCOHERENT SPEECH, NOT ANSWERING QUESTIONS APPROPRIATELY. NO STRANGULATION FINK NOTED. AIRWAY INTACT. PT WAS RECENTLY DISCHARGE FROM [facility] FOR DEPRESSION. SUICIDAL PRECAUTIONS INITIATED. BED IS DOWN, LOCKED, BED RAIL X 1, ERMD NOTIFIED.
--- NOTE | 2019-03-09 14:31 | NUR ---
[facility]- BIPOLAR, SCHIZO, ASTHMA
[2019-03-09] MEDS ORDERED: HYDROcodone/APAP 5/325 MG 1 TAB TAB PO ONE (14:35)
--- NOTE | 2019-03-09 14:46 | NUR ---
RAD AT BEDSIDE
--- NOTE | 2019-03-09 14:51 | NUR ---
[facility] EMT AT BEDSIDE
[2019-03-09 15:01] LABS: BASOPHILS # (AUTO) 0.1 K/uL (0.00-0.22); BASOPHILS % (AUTO) 0.7 % (0.0-2.0); EOSINOPHILS % (AUTO) 0.5 % (0.0-4.0); HEMATOCRIT 38.2 % (36-48); HEMOGLOBIN 12.6 g/dL (12.0-16.0); LYMPHOCYTES % (AUTO) 12.3 % (20.5-51.1); MEAN CORPUSCULAR HEMOGLOBIN 28 pg (27-31); MEAN CORPUSCULAR HGB CONC 33 g/dL (33-37); MONOCYTES # (AUTO) 1.3 K/uL (0.8-1.0); MONOCYTES % (AUTO) 15.1 % (1.7-9.3); NEUTROPHILS % (AUTO) 71.4 % (42.2-75.2); PLATELET COUNT (AUTO) 190 K/uL (140-450); RED BLOOD CELL COUNT(AUTO) 4.49 MIL/uL (4.20-5.40); RED CELL DISTRIBUTION WIDTH 13.9 % (11.6-13.7); WHITE BLOOD COUNT (AUTO) 8.4 K/uL (4.8-10.8)
[2019-03-09 15:11] LABS: ANION GAP 13.6 (8-16); CHLORIDE 101 mmol/L (98-107); CREATININE 0.9 mg/dL (0.6-1.3); GFR ARICAN-AMERICAN 80 mL/min (>90); GLUCOSE 141 mg/dL (74-106); POTASSIUM 3.6 mmol/L (3.5-5.1); SODIUM SERUM 140 mmol/L (136-145); UREA NITROGEN, BLOOD 16 mg/dL (7-18)
[2019-03-09 15:18] LABS: ALBUMIN 3.5 g/dL (3.4-5.0); ASPARTATE AMINOTRANSFERASE 33 U/L (15-37); TOTAL BILIRUBIN 0.5 mg/dL (0.0-1.0)
--- NOTE | 2019-03-09 15:30 | NUR ---
PT SITTING AT BEDSIDE. EMT PRESENT. VSS AT THIS TIME
[2019-03-09 15:53] LABS: APPEARANCE,URINE CLEAR (CLEAR); BILIRUBIN,URINE NEGATIVE (NEGATIVE); BLOOD, URINE NEGATIVE (NEGATIVE); COLOR,URINE YELLOW (YELLOW); LEUKOCYTE ESTERASE ,URINE NEGATIVE (NEGATIVE); NITRITE, URINE NEGATIVE (NEGATIVE); UGLUCOSE NEGATIVE (NEGATIVE)
[2019-03-09 15:59] LABS: BARBITURATE, URINE NEG. ng/ml (NEG <=200); BENZODIAZEPINE, URINE NEG. ng/mL (NEG <=200); CANNABINOID, URINE NEG. ng/mL (NEG <=50); COCAINE, URINE NEG. ng/mL (NEG <=300); OPIATE, URINE NEG. ng/mL (NEG <=2000); PHENCYCLIDINE SCREEN,URINE NEG. ng/mL (NEG <=25)
[2019-03-09] MEDS ORDERED: ONDANSETRON 4 MG/2 ML VIAL IM/IVP PRN (16:20)
[2019-03-09] MEDS ORDERED: MORPHINE SULFATE 2 MG/ML SYR IVP PRN (16:20)
[2019-03-09] MEDS ORDERED: DOCUSATE SODIUM 100 MG GELCAP PO PRN ×2 (16:20→17:15)
[2019-03-09] MEDS ORDERED: ACETAMINOPHEN 325 MG TAB PO PRN (16:20)
--- NOTE | 2019-03-09 16:30 | NUR ---
PT LAYING IN BED. EMT PRESENT. VSS AT THIS TIME
--- NOTE | 2019-03-09 17:03 | NUR ---
vss at this time. pt sitting in bed. emt at bedside
[2019-03-09] MEDS ORDERED: hydrOXYzine HCL 25 MG TAB PO PRN (17:15)
[2019-03-09] MEDS ORDERED: NON-FORMULARY ITEM (Levalbuterol HCl* (Xopenex*) 0.63 MG) INH SCH (17:15)
[2019-03-09] MEDS ORDERED: ALBUTEROL SULFATE/IPRATROPIU 3 ML SOL IH PRN ×2 (17:20→17:40)
[2019-03-09 17:30] LABS: BARBITURATE, URINE NEG. ng/ml (NEG <=200); BENZODIAZEPINE, URINE NEG. ng/mL (NEG <=200); CANNABINOID, URINE NEG. ng/mL (NEG <=50); COCAINE, URINE NEG. ng/mL (NEG <=300); OPIATE, URINE NEG. ng/mL (NEG <=2000); PHENCYCLIDINE SCREEN,URINE NEG. ng/mL (NEG <=25)
--- NOTE | 2019-03-09 17:30 | NUR ---
Patient will be admitted to care of [facility]. Admited to [facility]. Will go to room 109b. Belongings list completed. Report to silva maher.
--- NOTE | 2019-03-09 17:30 | NUR ---
RECEIVED PT FORM ED AAO. NO SOB NOTED. NO C/O PAIN AT THIS TIME. WITH 1:1 SITTER FOR SUICIDAL IDEATION. VITAL SIGNS TAKEN: TEMP: 98.7 F, HR: 92/MIN, RESP: 18/MIN, O2 SATS AT 95% ON ROOM AIR. MRSA SWABS TAKEN AND SENT TO LAB.
[2019-03-09 17:34] LABS: PROTHROMBIN TIME 9.7 secs (10.8-13.4)
[2019-03-09 17:41] LABS: CHOL/HDL RATIO 5.6 (1-4.5); PHOSPHORUS 3.4 mg/dL (2.5-4.9); THYROID STIMULATING HORMONE 1.37 uIU/mL (0.34-3.74)
[2019-03-09] MEDS ORDERED: DEXTROSE 50% 50 ML SYR IVP PRN (17:45)
--- NOTE | 2019-03-09 18:35 | NUR ---
PORTABLE CXR DONE AT THE BEDSIDE.
--- NOTE | 2019-03-09 19:10 | NUR ---
PT RESTING. NO SOB NOTED. NO COMPLAINTS MADE. WITH 1:1 SITTER AT THE BEDSIDE. WILL ENDORSE TO NEXT SHIFT NURSE FOR CONTINUITY OF CARE.
[2019-03-09 19:30] VITALS: BP 115/60
--- NOTE | 2019-03-09 19:30 | NUR ---
RECEIVED BEDSIDE REPORT FROM DAY SHIFT RN, PATIENT IN BED, ON RA, V/S TAKEN, O2STA 91% PLACED HOB UP NOW 93% ON RA, RT AWARE, SITTER AT BEDSIDE, PATIENT REFUSED SCHEDULED MEDICATION DR SANCHEZ AWARE, ASKED FOR SLEEPING PILL, CALL DR SANCHEZ HE SAID OKAY TO GIVE TRAMADOL, WILL GIVE, ADMISSION QUESTIONS ASKED, PATIENT REFUSED VACCINATIONS, PATIENT C/O PAIN, WILL MEDICATE.
--- NOTE | 2019-03-09 20:00 | NUR ---
PATIENT REFUSING TO WEAR YELLOW GOWN
[2019-03-09] MEDS: BUDESONIDE 0.5 MG/2 ML NEBU INH SCH (20:13)
[2019-03-09] MEDS: NACL 0.9% 1,000 ML IV SCH (20:59)
[2019-03-09] MEDS: BLOOD GLUCOSE MONITORING 1 DEV DEV FS SCH (20:59)
[2019-03-09] MEDS ORDERED: BUDESONIDE 0.5 MG/2 ML NEBU INH SCH (21:00)
[2019-03-09] MEDS: DIVALPROEX 500 MG TABER PO SCH ×2 (21:00→22:36)
[2019-03-09] MEDS: METOPROLOL 25 MG TAB PO SCH (21:00)
[2019-03-09] MEDS ORDERED: ARFORMOTEROL TARTRATE 15 MCG IH SCH (21:00)
[2019-03-09] MEDS: QUEtiapine FUMARATE 100 MG TAB PO SCH ×2 (21:00→22:36)
[2019-03-09] MEDS ORDERED: ALBUTEROL SULFATE/IPRATROPIU 3 ML SOL IH SCH (21:00)
--- NOTE | 2019-03-09 22:01 | NUR ---
PATIENT C/O SEVERE PAIN, YELLING IN ROOM, GAVE MORPHINE, IV IN RIGHT FA 22 G PATENT. EXPLAINED OF DUE MEDICATIONS AND NEED FOR THEM, PATIENT AGREED TO TAKE SEROQUEL, DEPAKOTE, AND A SLEEPING PILL, CONTINUES TO REFUSE FLUIDS AND BG CHECK BUT ASKED FOR WATER.
[2019-03-09] MEDS ORDERED: traZODone 50 MG TAB PO SCH (22:30)
--- NOTE | 2019-03-09 23:49 | NUR ---
V/S STABLE, STILL HAS SITTER, PATIENT RESTING IN BED
[2019-03-10] VITALS: BP 114/68
--- NOTE | 2019-03-10 01:56 | NUR ---
RESTING IN BED NO SIGNS OF DISTRESS
--- NOTE | 2019-03-10 04:57 | NUR ---
PATIENT RESTING IN BED, SITTER AT BEDSIDE
[2019-03-10] MEDS: BLOOD GLUCOSE MONITORING 1 DEV DEV FS SCH ×4 (05:02→20:38)
[2019-03-10] MEDS: LEVOTHYROXINE 0.05 MG TAB PO SCH (05:42)
--- NOTE | 2019-03-10 05:43 | NUR ---
PATIENT REFUSING SCHEDULED MEDICATIONS
--- NOTE | 2019-03-10 06:00 | NUR ---
PATIENT REFUSED LABS
[2019-03-10 06:17] LABS: T4 (THYROXINE) 6.5 ug/dL (4.5-12.0)
[2019-03-10] MEDS: IPRATROPIUM 0.02% 0.5 MG/2.5 ML NEBU INH SCH ×3 (07:01→19:51)
[2019-03-10] MEDS: BUDESONIDE 0.5 MG/2 ML NEBU INH SCH ×2 (07:02→19:51)
--- NOTE | 2019-03-10 07:16 | NUR ---
RECEIVED BEDSIDE REPORT FROM AROMATHERAPIST RN. PATIENT IN BED WITH SITTER 1:1 AT BEDSIDE. PATIENT IS AAOX2, NOT COOPERATING WELL. PT SEEMS IRRITATED. DR AWARE AT THIS TIME. PT HAS IV IN THE RIGHT AC 22G. SALINE LOCKED. WILL CONTINUE TO MONITOR PT. BED IN LOW POSITION, CALL LIGHT WITHIN REACH.
--- NOTE | 2019-03-10 07:31 | NUR ---
ENDORSED PATIENT TO DAY SHIFT NURSE, PATIENT STABLE
[2019-03-10 08:00] VITALS: BP 110/48
--- NOTE | 2019-03-10 08:13 | NUR ---
PATIENT HAS BEEN SCREENED AND CATEGORIZED LOW NUTRITION RISK. PATIENT WILL BE SEEN WITHIN 7 DAYS OF ADMISSION. 03/16/[address]
[2019-03-10] MEDS: NACL 0.9% 1,000 ML IV SCH (08:59)
[2019-03-10] MEDS ORDERED: TIOTROPIUM BROMIDE 18 MCG IH SCH (09:00)
[2019-03-10] MEDS: METOPROLOL 25 MG TAB PO SCH ×2 (09:00→20:39)
[2019-03-10] MEDS: GABAPENTIN 100 MG CAP PO SCH ×3 (09:07→17:00)
[2019-03-10] MEDS: DIVALPROEX 500 MG TABER PO SCH ×2 (09:07→20:38)
[2019-03-10] MEDS: CLOPIDOGREL 75 MG TAB PO SCH (09:08)
[2019-03-10] MEDS: FUROSEMIDE 20 MG TAB PO SCH (09:08)
[2019-03-10] MEDS: FAMOTIDINE 20 MG TAB PO SCH (09:08)
[2019-03-10] MEDS: QUEtiapine FUMARATE 100 MG TAB PO SCH ×2 (09:08→20:38)
[2019-03-10] MEDS: CARBIDOPA/LEVODOPA 10/100 MG 1 TAB PO SCH ×3 (09:09→17:00)
--- NOTE | 2019-03-10 09:12 | NUR ---
ADMINISTERED MEDS TO PT. PT TOLERATED WELL. LOPRESSOR WAS HELD DUE TO DECREASE IN PT BP. ALL OTHER NEEDS MET AT THIS TIME. WILL CONTINUE TO ROUND FREQUENTLY.
--- NOTE | 2019-03-10 11:38 | NUR ---
PT RESTING IN BED. PT IS CALM AT THIS TIME. WILL CONTINUE TO ROUND FREQUENTLY ON PT. SITTER AT BEDSIDE 1:1.
--- NOTE | 2019-03-10 12:36 | NUR ---
RECEIVED P.T. EVAL ORDERS, PER HIRAL ABEL PATIENT HAS BEEN ASLEEP MOST OF THE MORNING SHE HAS NOT SLEPT THE WHOLE NIGHT BUT PRIOR TO FALLING ASLEEP HAS BEEN RESISTIVE TO OTHER MEDICAL CARE. HOLD FOR P.T. EVAL TODAY PER PAGE.
--- NOTE | 2019-03-10 15:37 | NUR ---
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 Patient has been living at [facility] since August 2018. I was informed by Torri at [facility] during previous hospital admission patient was self responsible and does not have any family. She stated patient does not have an existing Advance Directive for health care. She told me patient. Patient has a pcp from [facility]. Per Torri, she will speak with their university administrator and ask if patient can return to their facility if cleared by psychiatrist/psychologist. Torri stated she will call me back and let me know.
[2019-03-10 16:00] VITALS: BP 123/86
[2019-03-10] MEDS: traZODone 50 MG TAB PO SCH (17:00)
--- NOTE | 2019-03-10 19:28 | NUR ---
RECEIVED FROM AM RN IN BED SLEEPING . REFUSED TO WAKE UP AT THIS TIME. WITH SITTER 1:1` . DX. OF SUICIDAL ATTEMPT. PER AM RN PT. BEEN COMBATIVE AND RESISTING MEDICATIONS BUT EVENTUALLY ABLE TO TAKE MEDICATIONS. NEEDS WILL BE ANTICIPATED AND WILL BE MET. HX. MRSA NARES. ISOL;ATION PRECAUTIONS PER PROTOCOL WILL BE OBSERVED.
--- NOTE | 2019-03-10 19:43 | NUR ---
ENDORSED PT TO DOCUMENTUM CONSULTANT FOR CONTINUITY OF CARE. PT IN STABLE CONDITION.
--- NOTE | 2019-03-10 20:13 | NUR ---
RECEIVED PATIENT ON ROOM AIR, PULSE OX SAT 93%. RN SITTER AT BEDSIDE. SCHEDULED BREATHING TREATMENTS ADMINISTERED. TOLERATED TREATMENTS WELL, NO ADVERSE SIDE EFFECTS. ORAL RINSE DONE POST TX. NO RESPIRATORY DISTRESS NOTED AT THIS TIME. WILL CONTINUE TO MONITOR.
[2019-03-10 20:24] VITALS: BP 150/95
--- NOTE | 2019-03-10 20:25 | NUR ---
PT. AWAKE AT THIS TIME AND ATTENDED TO BY SITTER. PT. WITH DX. OF 5150. INCONTINENT TO B AND B. PT. URINATED IN BED. WILL BE CHANGED AND KEPT DRY.
--- NOTE | 2019-03-10 20:43 | NUR ---
PT. ABLE TO SWALLOW ALL P.O. MEDICATIONS WELL. NO SOB. DENIES PAIN. GOOD AFFECT. FOLLOWS INSTRUCTIONS. HELPED IN TURNING SELF. KEPT CLEAN AND DRY. SITTER 1:1.
[2019-03-10] MEDS: HYDROcodone/APAP 7.5/325 MG 1 TAB PO PRN (21:48)
--- NOTE | 2019-03-10 21:48 | NUR ---
PT. SITTING UP IN BED AND REQUESTING FOR PAIN RELIEVER FOR BACK PAIN. STATED SHE IS TIRED OF LAYING DOWN IN BED. ABLE TO VERBALIZE SIMPLE NEEDS WELL.
[2019-03-10 23:19] VITALS: BP 111/53
--- NOTE | 2019-03-10 23:27 | NUR ---
PT. WITH SITTER 1:1. SLEEPING AT THIS TIME. NO RESTLESSNESS. 02 SAT ROOM AIR 93 % .
[2019-03-11] MEDS: NACL 0.9% 1,000 ML IV SCH ×2 (01:39→17:34)
--- NOTE | 2019-03-11 01:51 | NUR ---
PT. AWAKE AT THIS TIME AND IS TALKING LOUDLY TO HERSELF IF SHE IS PLAYING WITH SOMEONE. SITTER 1:1 . ENCOURAGED TO SLEEP RT NIGHT TIME.
[2019-03-11 02:03] VITALS: BP 129/69
[2019-03-11] MEDS: HYDROcodone/APAP 7.5/325 MG 1 TAB PO PRN ×2 (02:08→09:04)
--- NOTE | 2019-03-11 04:01 | NUR ---
PT. STILL AWAKE BUT NO LONGER THAT LOUD. STILL TALKING TO SOMEONE BY HERSELF. DEJAN 1:1.
[2019-03-11] MEDS: BLOOD GLUCOSE MONITORING 1 DEV DEV FS SCH ×4 (05:24→21:37)
[2019-03-11] MEDS: INSULIN LISPRO SLIDING SCALE 100 UNITS/ML VIAL SUBQ PRN (05:24)
[2019-03-11] MEDS: LEVOTHYROXINE 0.05 MG TAB PO SCH (05:29)
--- NOTE | 2019-03-11 05:29 | NUR ---
PT. WOKE UP AT THIS TIME. WAKES UP EASILY. NO SOB. GOOD AFFECT THIS MORNING. ABLE TO VERBALIZE NEEDS WELL. SITTER 1:1. KEPT CLEAN,DRY AND COMFORTABLE.
--- NOTE | 2019-03-11 06:19 | NUR ---
PT. SITTING AT EDGE OF BED. SITTER 1:1. GOOD AFFECT. VERBALIZING WELL WITH NURSE AND SPORTS RECRUITER. DENIES PAIN AT THIS TIME.
--- NOTE | 2019-03-11 07:30 | NUR ---
RECEIVED BEDSIDE REPORT FROM RN DENIS, PT STABLE, AWAKE, AND ALERT. NO SIGNS OF DISTRESS NOTED. NO IV SITE, PT REFUSED. [address], SITTER AT THE BEDSIDE. CALL BONILLA WITHIN REACH. BED IN LOWEST POSITION. SAFETY MEASURES IN PLACE. PLAN OF CARE REVIEWED.
[2019-03-11] MEDS: BUDESONIDE 0.5 MG/2 ML NEBU INH SCH ×2 (07:38→19:30)
[2019-03-11] MEDS: IPRATROPIUM 0.02% 0.5 MG/2.5 ML NEBU INH SCH ×3 (07:38→19:00)
[2019-03-11 08:00] VITALS: BP 113/61
--- NOTE | 2019-03-11 08:10 | NUR ---
PT AMBULATED TO THE BATHROOM WITH ASSIST.
[2019-03-11] MEDS: GABAPENTIN 100 MG CAP PO SCH ×3 (09:03→17:35)
[2019-03-11] MEDS: DIVALPROEX 500 MG TABER PO SCH ×2 (09:04→21:00)
[2019-03-11] MEDS: FUROSEMIDE 20 MG TAB PO SCH (09:04)
[2019-03-11] MEDS: QUEtiapine FUMARATE 100 MG TAB PO SCH ×2 (09:05→21:00)
[2019-03-11] MEDS: CARBIDOPA/LEVODOPA 10/100 MG 1 TAB PO SCH ×3 (09:05→17:35)
[2019-03-11] MEDS: METOPROLOL 25 MG TAB PO SCH ×2 (09:06→21:00)
[2019-03-11] MEDS: FAMOTIDINE 20 MG TAB PO SCH (09:06)
[2019-03-11] MEDS: CLOPIDOGREL 75 MG TAB PO SCH (09:06)
--- NOTE | 2019-03-11 09:12 | NUR ---
ADMINISTERED SCHEDULED MEDICATIONS, PT TOLERATED WELL. NO OTHER NEEDS AT THIS TIME. SITTER AT THE BEDSIDE.
--- NOTE | 2019-03-11 11:10 | NUR ---
PT STABLE, SLEEPING, BUT EASILY AROUSABLE. NO OTHER NEEDS AT THIS TIME.
--- NOTE | 2019-03-11 13:15 | NUR ---
ADMINISTERED SCHEDULED MEDICATIONS, PT TOLERATED WELL. SITTER BY THE BEDSIDE.
--- NOTE | 2019-03-11 14:20 | NUR ---
RECEIVED CALL FROM VIJAYA LEBRON FROM [facility], UPDATED REGARDING PT'S PLAN OF CARE.
--- NOTE | 2019-03-11 14:56 | NUR ---
Packet faxed to Annmarie at [facility] for review.
--- NOTE | 2019-03-11 15:05 | NUR ---
Packet faxed to intake at [facility] for review.
--- NOTE | 2019-03-11 15:06 | NUR ---
Faxed clinicals to [facility] .
--- NOTE | 2019-03-11 15:08 | NUR ---
Spoke with Art from [facility] and he already received the clinicals for the pt.
[2019-03-11 15:33] LABS: BASOPHILS % (AUTO) 0.4 % (0.0-2.0); EOSINOPHILS # (AUTO) 0.1 K/uL (0-0.4); EOSINOPHILS % (AUTO) 1.6 % (0.0-4.0); HEMATOCRIT 38.9 % (36-48); HEMOGLOBIN 12.8 g/dL (12.0-16.0); LYMPHOCYTES # (AUTO) 2.2 K/uL (2.5-16.5); LYMPHOCYTES % (AUTO) 27.9 % (20.5-51.1); MEAN CORPUSCULAR HEMOGLOBIN 28 pg (27-31); MEAN CORPUSCULAR HGB CONC 33 g/dL (33-37); MEAN CORPUSCULAR VOLUME 85.1 fL (80-94); MONOCYTES # (AUTO) 0.9 K/uL (0.8-1.0); MONOCYTES % (AUTO) 12.3 % (1.7-9.3); NEUTROPHILS # (AUTO) 4.5 K/uL (1.8-7.7); NEUTROPHILS % (AUTO) 57.8 % (42.2-75.2); PLATELET COUNT (AUTO) 204 K/uL (140-450); RED BLOOD CELL COUNT(AUTO) 4.58 MIL/uL (4.20-5.40); WHITE BLOOD COUNT (AUTO) 7.7 K/uL (4.8-10.8)
[2019-03-11 15:54] LABS: ANION GAP 12.8 (8-16); CARBON DIOXIDE 30.7 mmol/L (21-32); POTASSIUM 3.5 mmol/L (3.5-5.1)
[2019-03-11 16:00] VITALS: BP 113/89
[2019-03-11 16:29] LABS: MAGNESIUM 1.8 mg/dL (1.8-2.4); PHOSPHORUS 2.4 mg/dL (2.5-4.9)
--- NOTE | 2019-03-11 16:30 | NUR ---
VITAL SIGNS TAKEN, PT STABLE. SITTER AT THE BEDSIDE. PT INSISTING ON WALKING IN THE HALLWAY, INSTRUCTED PT THAT SHES NOT ALLOWED TO DUE TO 5150 HOLD AND SAFETY PRECAUTION. CHARGE NURSE ZANDRA HUYNH.
[2019-03-11] MEDS: traZODone 50 MG TAB PO SCH (17:35)
--- NOTE | 2019-03-11 17:39 | NUR ---
ADMINISTERED SCHEDULED MEDICATIONS, PT TOLERATED WELL. NO OTHER NEEDS AT THIS TIME. SITTER BY THE BEDSIDE.
--- NOTE | 2019-03-11 19:10 | NUR ---
ENDORSED PT TO [facility] KRISHNAMURTHY FOR CONTINUITY OF CARE. PT STABLE. SITTER AT THE BEDSIDE.
--- NOTE | 2019-03-11 19:11 | NUR ---
RECEIVED BEDSIDE REPORT FROM SAURAV ABEL. PT IS AWAKE AND ALERT. ON ROOM AIR. RESPIRATIONS ARE EQUAL AND UNLABORED. HAS NO IV ACCESS. PT REFUSED IV ACCESS. SKIN INTACT PER NURSE. ON CONTACT ISOLATION FOR HX OF MRSA. ON FALL PRECAUTIONS. CONSULT WITH PSYCH DOC PENDING. PT WITH SITTER 1:1. WILL CONTINUE TO MONITOR.
--- NOTE | 2019-03-11 19:40 | NUR ---
PT REFUSING VS AND IV ACCESS AND ACCU CHECK. STATES EVERYONE IS A LIAR THEY BROUGHT ME AN OLD SANDWICH. PT YELLED, "GET THAT MACHINE AWAY FROM ME AND I DO NOT WANT TO SEE YOU." WILL ATTEMPT AT A LATER TIME.
--- NOTE | 2019-03-11 19:57 | NUR ---
RECEIVED PATIENT ON ROOM AIR. PATIENT REFUSING ASSESSMENT. PATIENT REFUSING SCHEDULED BREATHING TREATMENTS. RN AWARE. NO RESPIRATORY DISTRESS NOTED AT THIS TIME. WILL CONTINUE TO MONITOR.
--- NOTE | 2019-03-11 21:40 | NUR ---
PT IS REFUSING ALL MEDICATIONS. EXPLAIN RISK OF NOT TAKING MEDS. PT VERBALIZED UNDERSTANDING. DR MARLEY DEJESUS. SAFETY MEASURES ARE IN PLACE. 1:1 SITTER. WILL CONTINUE TO MONITOR.
--- NOTE | 2019-03-11 22:50 | NUR ---
DR ARAYA IN TO SEE PT. PT DID NOT SPEAK WITH THE DOCTOR. AWAITING TO TRANSFER PT TO INPATIENT PSYCH FACILITY.
--- NOTE | 2019-03-11 23:47 | NUR ---
Follow up calls were made to the following facilities for bed placement. Still no bed available to accommodate patient at this time. [facility] serafin Mcguire, spoke with Miki. [facility], spoke with Jennifer. [facility], spoke with Alcides. [facility], spoke with Renae. Packet was refaxed. [facility], spoke with Rehana. [facility], spoke with Kemi. [facility], spoke with Giuliana. [facility], spoke with Reji. Will continue to call for bed placement.
[2019-03-11] MEDS: SIMETHICONE 80 MG TAB.CHEW PO PRN (23:52)
--- NOTE | 2019-03-11 23:52 | NUR ---
PT ALLOWED ME TO TAKE HER VITAL SIGNS: 135/57,HR 106, RR 18, 93% ON RA TEMP 98.2 ADMINISTERED AMBIEN PT TOLERATED WELL. SAFETY MEASURES ARE IN PLACE. WILL CONTINUE TO MONITOR.
[2019-03-12] VITALS: BP 135/57
[2019-03-12] MEDS ORDERED: ZOLPIDEM 5 MG TAB PO SCH
--- NOTE | 2019-03-12 01:14 | NUR ---
PT SLEEPING COMFORTABLY IN BED. RESPIRATIONS ARE EQUAL AND UNLABORED. SAFETY MEASURES ARE IN PLACE.
--- NOTE | 2019-03-12 04:11 | NUR ---
PT SLEEPING COMFORTABLY IN BED. RESPIRATIONS ARE EQUAL AND UNLABORED. SAFETY MEASURES ARE IN PLACE.
[2019-03-12] MEDS: LEVOTHYROXINE 0.05 MG TAB PO SCH (06:00)
--- NOTE | 2019-03-12 06:12 | NUR ---
DUE MEDICATION GIVEN. PT TOLERATED WELL. ALL NEEDS MET AT THIS TIME. WILL CONTINUE TO MONITOR.
[2019-03-12] MEDS: BLOOD GLUCOSE MONITORING 1 DEV DEV FS SCH ×4 (06:16→21:28)
--- NOTE | 2019-03-12 07:22 | NUR ---
RECEIVED BEDSIDE REPORT FROM PAGE KRISHNAMURTHY. PT STABLE, SLEEPING, BUT EASILY AROUSABLE. NO SIGNS OF DISTRESS NOTED. DENIES PAIN OR SOB. NO IV ACCESS, PT REFUSED. BED IN LOWEST POSITION, BED ALARM ON. CALL BONILLA WITHIN REACH. SAFETY MEASURES IN PLACE. PLAN OF CARE REVIEWED. SITTER AT THE BEDSIDE.
--- NOTE | 2019-03-12 07:23 | NUR ---
GAVE BEDSIDE REPORT TO SAURAV ABEL. PT ENDORSED IN STABLE CONDITION.
[2019-03-12] MEDS: BUDESONIDE 0.5 MG/2 ML NEBU INH SCH ×2 (07:32→20:09)
[2019-03-12] MEDS: IPRATROPIUM 0.02% 0.5 MG/2.5 ML NEBU INH SCH ×3 (07:32→20:08)
[2019-03-12 08:00] VITALS: BP 122/88
--- NOTE | 2019-03-12 08:15 | NUR ---
PT AMBULATED TO THE BATHROOM WITH ASSIST. LINENS AND GOWN CHANGED.
[2019-03-12] MEDS: QUEtiapine FUMARATE 100 MG TAB PO SCH ×2 (09:35→21:26)
[2019-03-12] MEDS: GABAPENTIN 100 MG CAP PO SCH ×3 (09:36→17:52)
[2019-03-12] MEDS: FUROSEMIDE 20 MG TAB PO SCH (09:36)
[2019-03-12] MEDS: SIMETHICONE 80 MG TAB.CHEW PO PRN ×2 (09:36→17:52)
[2019-03-12] MEDS: FAMOTIDINE 20 MG TAB PO SCH (09:37)
[2019-03-12] MEDS: CARBIDOPA/LEVODOPA 10/100 MG 1 TAB PO SCH ×3 (09:37→17:53)
[2019-03-12] MEDS: DIVALPROEX 500 MG TABER PO SCH ×2 (09:37→21:26)
[2019-03-12] MEDS: METOPROLOL 25 MG TAB PO SCH ×2 (09:38→21:26)
[2019-03-12] MEDS: NACL 0.9% 1,000 ML IV SCH (09:39)
[2019-03-12] MEDS: CLOPIDOGREL 75 MG TAB PO SCH (09:39)
--- NOTE | 2019-03-12 09:48 | NUR ---
ADMINISTERED SCHEDULED MEDICATIONS AND PRN SIMETHICONE FOR C/O OF GAS. PT TOLERATED WELL. NO OTHER NEEDS AT THIS TIME.
--- NOTE | 2019-03-12 11:45 | NUR ---
MADE DR BENAVIDEZ AWARE OF PT COUGHING, PRODUCTIVE.
--- NOTE | 2019-03-12 11:49 | NUR ---
PT REFUSED BLOOD SUGAR CHECK, MD AWARE. PT STABLE, SLEEPING, BUT EASILY AROUSABLE.
--- NOTE | 2019-03-12 12:39 | NUR ---
ADMINISTERED SCHEDULED MEDICATIONS, PT TOLERATED WELL. NO OTHER NEEDS AT THIS TIME.
--- NOTE | 2019-03-12 12:50 | NUR ---
MADE DR BENAVIDEZ AWARE OF PT REQUEST FOR ADDITIONAL GAS MEDICATION. TO SEE PT.
[2019-03-12 12:53] LABS: BASOPHILS % (AUTO) 0.3 % (0.0-2.0); EOSINOPHILS # (AUTO) 0.1 K/uL (0-0.4); EOSINOPHILS % (AUTO) 1.5 % (0.0-4.0); HEMATOCRIT 38.7 % (36-48); HEMOGLOBIN 12.7 g/dL (12.0-16.0); LYMPHOCYTES # (AUTO) 1.8 K/uL (2.5-16.5); LYMPHOCYTES % (AUTO) 21.9 % (20.5-51.1); MEAN CORPUSCULAR HEMOGLOBIN 28 pg (27-31); MEAN CORPUSCULAR HGB CONC 33 g/dL (33-37); MEAN CORPUSCULAR VOLUME 84.9 fL (80-94); MONOCYTES # (AUTO) 0.9 K/uL (0.8-1.0); NEUTROPHILS # (AUTO) 5.4 K/uL (1.8-7.7); NEUTROPHILS % (AUTO) 65.3 % (42.2-75.2); PLATELET COUNT (AUTO) 196 K/uL (140-450); RED BLOOD CELL COUNT(AUTO) 4.57 MIL/uL (4.20-5.40); RED CELL DISTRIBUTION WIDTH 13.7 % (11.6-13.7); WHITE BLOOD COUNT (AUTO) 8.3 K/uL (4.8-10.8)
[2019-03-12 13:05] LABS: ANION GAP 10.6 (8-16); CARBON DIOXIDE 31.8 mmol/L (21-32); CREATININE 0.8 mg/dL (0.6-1.3); POTASSIUM 4.4 mmol/L (3.5-5.1)
--- NOTE | 2019-03-12 13:10 | NUR ---
DR BENAVIDEZ AT THE BEDSIDE.
[2019-03-12] MEDS ORDERED: TRAZ-343 PO (13:47)
[2019-03-12] MEDS: guaiFENesin 20 MG/ML UDC PO PRN (13:54)
--- NOTE | 2019-03-12 13:54 | NUR ---
CALLED [facility] AND SPOKE WITH YESENIA. HE SAID THEY ARE WAITING FOR THE RE-EVAL.
[2019-03-12] MEDS: HYDROcodone/APAP 7.5/325 MG 1 TAB PO PRN (14:01)
--- NOTE | 2019-03-12 14:03 | NUR ---
ADMINISTERED PRN NORCO FOR 7/10 HEADACHE AND PRN GUAIFENESIN FOR COUGHING. PT TOLERATED WELL.
[2019-03-12 16:00] VITALS: BP 109/68
--- NOTE | 2019-03-12 16:30 | NUR ---
VITAL SIGNS TAKEN, PT STABLE. INSTRUCTED PT ON HOW TO USE INCENTIVE SPIROMETER PER DR BENAVIDEZ'S ORDER. PT VERBALIZED UNDERSTANDING.
[2019-03-12] MEDS: INSULIN LISPRO SLIDING SCALE 100 UNITS/ML VIAL SUBQ PRN (17:51)
[2019-03-12] MEDS: traZODone 50 MG TAB PO SCH (17:52)
--- NOTE | 2019-03-12 17:55 | NUR ---
ADMINISTERED SCHEDULED MEDICATIONS AND PRN SIMETHICONE FOR C/O OF EXCESS GAS. PT TOLERATED WELL. INSTRUCTED PT ON HOW TO USE INCENTIVE SPIROMETER PER MD ORDER. Addendum: 03/12/19 at 1937 by Eloy Cordova RN ADMINISTERED 2 UNITS HUMALOG FOR BG 167.
--- NOTE | 2019-03-12 18:10 | NUR ---
PICTURE TAKEN FOR WOUND ON RIGHT LOWER BACK.
--- NOTE | 2019-03-12 19:05 | NUR ---
ENDORSED PT TO PAGE ANTOINE FOR CONTINUITY OF CARE. PT STABLE.
--- NOTE | 2019-03-12 19:06 | NUR ---
RECEIVED REPORT FROM AM NURSE. PATIENT SITTING IN BED. NO DISTRESS NOTED. DENIES ANY PAIN. AAOX3, BIPOLAR, CALM, COOPERATIVE AT THIS TIME. HAS RIGHT ABD SMALL SUPERFICIAL CUT NOTED. LUNGS CTA ON ALL LOBES. RESPIRATIONS EVEN, UNLABORED, ON ROOM AIR. DENIES ANY THOUGHTS OF HARMING SELF AT THIS TIME. REVIEWED PLAN OF CARE WITH PATIENT. REINFORCEMENT NEEDED. SAFETY MEASURES IN PLACE, SITTER AT BEDSIDE. WILL CONTINUE TO MONITOR.
--- NOTE | 2019-03-12 20:09 | NUR ---
DR. SALAZAR AT BEDSIDE TALKING WITH PATIENT. WILL CONTINUE TO MONITOR.
--- NOTE | 2019-03-12 21:30 | NUR ---
PATIENT SITTING LYING DOWN IN BED. NO DISTRESS NOTED. DENIES ANY PAIN. SCHEDULED MEDICATIONS DUE GIVEN. WILL CONTINUE TO MONITOR.
--- NOTE | 2019-03-12 22:04 | NUR ---
CALLED KATHRYN MARTIN REGARDING PATIENT CLEARED FROM 5150 AND ABLE TO GO HOME. PER [facility]ATHRYN MARTIN, DISCHARGE WOULD HAVE TO BE TOMORROW THEY DO NOT PROVIDE TRANSPORTATION THIS LATE AT NIGHTTIME. WILL CONTINUE TO MONITOR.
[2019-03-12 23:42] VITALS: BP 120/58
--- NOTE | 2019-03-13 00:31 | NUR ---
PATIENT LYING DOWN IN BED SLEEPING, AROUSABLE BY VOICE. NO DISTRESS NOTED. DENIES ANY PAIN. WILL CONTINUE TO MONITOR.
--- NOTE | 2019-03-13 02:24 | NUR ---
PATIENT LYING DOWN IN BED SLEEPING, AROUSABLE BY VOICE. NO DISTRESS NOTED. CONDITION UNCHANGED. WILL CONTINUE TO MONITOR.
[2019-03-13] MEDS: NACL 0.9% 1,000 ML IV SCH (03:10)
--- NOTE | 2019-03-13 04:16 | NUR ---
PATIENT LYING DOWN IN BED SLEEPING, AROUSABLE BY VOICE. CONDITION UNCHANGED. WILL CONTINUE TO MONITOR.
[2019-03-13] MEDS: LEVOTHYROXINE 0.05 MG TAB PO SCH (05:59)
[2019-03-13] MEDS: BLOOD GLUCOSE MONITORING 1 DEV DEV FS SCH ×3 (06:08→16:36)
--- NOTE | 2019-03-13 06:08 | NUR ---
PATIENT LYING DOWN IN BED SLEEPING, AROUSABLE BY VOICE. NO DISTRESS NOTED. DENIES ANY PAIN. CONDITION UNCHANGED. WILL CONTINUE TO MONITOR.
--- NOTE | 2019-03-13 07:10 | NUR ---
RECEIVED BEDSIDE REPORT FROM PAGE ANTOINE. PT STABLE, SLEEPING, BUT EASILY AROUSABLE. NO SIGNS OF DISTRESS NOTED. DENIES PAIN OR SOB. NO IV ACCESS, PT REFUSED. PT REFUSED MORNING BLOOD DRAW, WILL FOLLOW UP. CALL BONILLA WITHIN REACH. BED IN LOWEST POSITION, BED ALARM ON. SAFETY MEASURES IN PLACE. PLAN OF CARE REVIEWED.
--- NOTE | 2019-03-13 07:12 | NUR ---
GAVE REPORT TO AM SHIFT NURSE FOR CONTINUITY OF CARE. PATIENT IN STABLE CONDITION.
[2019-03-13] MEDS: BUDESONIDE 0.5 MG/2 ML NEBU INH SCH ×2 (07:48→18:50)
[2019-03-13] MEDS: IPRATROPIUM 0.02% 0.5 MG/2.5 ML NEBU INH SCH ×3 (07:48→18:49)
[2019-03-13 08:00] VITALS: BP 133/88
--- NOTE | 2019-03-13 08:00 | NUR ---
MADE DR VINES AWARE THAT PT REFUSED MORNING BLOOD DRAW. TO SEE PT.
--- NOTE | 2019-03-13 08:05 | NUR ---
[facility] ON UNIT READY TO TAKE PATIENT TO [facility]. ALL BELONGINGS WITH PATIENT. ID BANDS REMOVED. PATIENT DISCHARGED AT THIS TIME IN STABLE CONDITION Addendum: 03/13/19 at 2104 by Jake Huang RN PLEASE DISREGARD NOTE. WRONG TIME. SUPPOSE TO BE 1999 NOTE
--- NOTE | 2019-03-13 08:20 | NUR ---
PT INSISTED ON CLOSING THE DOOR TO HER ROOM, INSTRUCTED PT REGARDING SAFETY MEASURES AND TO KEEP DOOR OPEN TO MONITOR PT. PT REFUSED, UPSET, YELLING TO CLOSE THE DOOR. PT AMBULATING TO THE BATHROOM, REFUSES TO BE ASSISTED. MADE CHARGE NURSE AWARE.
[2019-03-13] MEDS: GABAPENTIN 100 MG CAP PO SCH ×3 (09:44→16:32)
[2019-03-13] MEDS: FAMOTIDINE 20 MG TAB PO SCH (09:44)
[2019-03-13] MEDS: CARBIDOPA/LEVODOPA 10/100 MG 1 TAB PO SCH ×3 (09:44→16:32)
[2019-03-13] MEDS: DIVALPROEX 500 MG TABER PO SCH (09:44)
[2019-03-13] MEDS: QUEtiapine FUMARATE 100 MG TAB PO SCH (09:45)
[2019-03-13] MEDS: SIMETHICONE 80 MG TAB.CHEW PO PRN (09:45)
[2019-03-13] MEDS: CLOPIDOGREL 75 MG TAB PO SCH (09:45)
[2019-03-13] MEDS: FUROSEMIDE 20 MG TAB PO SCH (09:45)
[2019-03-13] MEDS: METOPROLOL 25 MG TAB PO SCH (09:46)
--- NOTE | 2019-03-13 09:53 | NUR ---
ADMINISTERED SCHEDULED MEDICATIONS, PT TOLERATED WELL. NO OTHER NEEDS AT THIS TIME. Addendum: 03/13/19 at 0953 by Eloy Cordova RN ADMINISTERED PRN SIMETHICONE FOR C/O OF GAS.
--- NOTE | 2019-03-13 10:10 | NUR ---
PT NOTE CHART REVIEWED AND CLEARED FOR PT PER RN; Pt WAS SEEN ASLEEP, EASILY ROUSABLE TO VERBAL STIMULI; REFUSED PT TX TODAY DESPITE OF EDUCATION AND ENCOURAGEMENT; Pt STATES THAT SHE IS TIRED; RN NOTIFIED.
[2019-03-13] MEDS ORDERED: SODIUM PHOS / POTASSIUM PHOS 1 PKT PDR PO SCH (11:26)
--- NOTE | 2019-03-13 11:30 | NUR ---
PT AMBULATED TO THE BATHROOM WITH ASSIST. LINENS AND GOWN CHANGED.
--- NOTE | 2019-03-13 12:10 | NUR ---
CHARGE NURSE LEFT A MESSAGE TO PT'S FRIEND JOSE REGARDING PLAN OF CARE.
[2019-03-13] MEDS: guaiFENesin 20 MG/ML UDC PO PRN (12:56)
[2019-03-13] MEDS: HYDROcodone/APAP 7.5/325 MG 1 TAB PO PRN (13:03)
--- NOTE | 2019-03-13 13:05 | NUR ---
ADMINISTERED SCHEDULED MEDICATIONS AND PRN NORCO FOR 6/10 ABDOMINAL PAIN, ADMINISTERED PRN GUAIFENESIN FOR COUGHING. PT TOLERATED WELL. NO OTHER NEEDS AT THIS TIME.
--- NOTE | 2019-03-13 14:44 | NUR ---
SPOKE TO SOILA [facility] OF [employer] AND SHE SAID SHE WILL SET UP TRANSPORTATION [facility].
--- NOTE | 2019-03-13 14:45 | NUR ---
FAXED DISCHARGE ORDER TO .
[2019-03-13] MEDS ORDERED: ATOR10TA PO (15:03)
--- NOTE | 2019-03-13 15:20 | NUR ---
VITAL SIGNS TAKEN, PT STABLE. NO OTHER NEEDS AT THIS TIME.
[2019-03-13 16:00] VITALS: BP 125/77
[2019-03-13] MEDS: traZODone 50 MG TAB PO SCH (16:32)
--- NOTE | 2019-03-13 16:35 | NUR ---
ADMINISTERED SCHEDULED MEDICATIONS, PT TOLERATED WELL. BG 114, NO COVERAGE NEEDED.
--- NOTE | 2019-03-13 17:20 | NUR ---
PT STABLE, SLEEPING, BUT EASILY AROUSABLE. CHEST RISE AND FALL VISIBLY NOTED.
--- NOTE | 2019-03-13 19:10 | NUR ---
ENDORSED PT TO PAGE ANTOINE FOR CONTINUITY OF CARE. PT STABLE.
--- NOTE | 2019-03-13 19:11 | NUR ---
PATIENT SITTING IN BED COMFORTABLY. NO DISTRESS NOTED. DENIES ANY PAIN. AAOX3, CALM, COOPERATIVE, SKIN COLOR APPROPRIATE TO ETHNICITY, WARM TO TOUCH. RESPIRATIONS EVEN, UNLABORED, ON ROOM AIR. NO IV SITE PATIENT REFUSES. ABDOMEN SOFT, NON-DISTENDED. REVIEWED PLAN OF CARE WITH PATIENT. PATIENT VERBALIZED UNDERSTANDING. SAFETY MEASURES IN PLACE, CALL LIGHT WITHIN REACH. WILL CONTINUE TO MONITOR.
--- NOTE | 2019-03-13 19:54 | NUR ---
DISCHARGE INSTRUCTIONS GIVEN TO PATIENT IN PREFERRED LANGUAGE OF [place]AYSIAN. INSTRUCTIONS REGARDING NEW/CHANGED MEDICATIONS, DIET REGIMEN, AND SUICIDAL SELF HELP EDUCATION PROVIDED. ANSWERED ALL OF PATIENT'S QUESTIONS REGARDING DISCHARGE. ALL BELONGINGS WITH PATIENT. AWAITING FOR [facility] TO ARRIVE AROUND 1999 TO TAKE PATIENT TO [facility]. WILL CONTINUE TO MONITOR.
--- NOTE | 2019-03-13 20:05 | NUR ---
[facility] ON UNIT READY TO TAKE PATIENT TO [facility]. ALL BELONGINGS WITH PATIENT. ID BANDS REMOVED. PATIENT DISCHARGED AT THIS TIME IN STABLE CONDITION
== END 2019-03-13 20:05 | DRG 189 ==
LOC: MED 14:10 → MTU 16:19
PROVIDERS: ADMIT General Practice; ATTEND General Practice
DX: J96.01 Acute respiratory failure with hypoxia (principal); J44.1 Chronic obstructive pulmonary disease with (acute) exacerbation; R45.851 Suicidal ideations; F31.9 Bipolar disorder, unspecified; G89.29 Other chronic pain; G47.33 Obstructive sleep apnea (adult) (pediatric); F25.9 Schizoaffective disorder, unspecified; K21.9 Gastro-esophageal reflux disease without esophagitis; R73.9 Hyperglycemia, unspecified; I10 Essential (primary) hypertension; E03.9 Hypothyroidism, unspecified; G20 Parkinson's disease; G62.9 Polyneuropathy, unspecified; G47.00 Insomnia, unspecified; Z88.0 Allergy status to penicillin; Z88.2 Allergy status to sulfonamides; Z88.8 Allergy status to other drugs, medicaments and biological substances; Z79.899 Other long term (current) drug therapy
CPT/HCPCS: 36415; 36600; 71045; 74018; 80048; 80053; 80305; 81003; 82140; 82150; 82550; 82803; 82948; 83036; 83690; 83735; 83880; 84100; 84436; 84443; 84484; 85025; 85610; 85730; 87081; 93005; 94640; 97116; 97530; 99285; C1758; G0482; J1815; J2270; J7620; J7626; J7644; Q0092